=== PATIENT | female | born 1960 | race Caucasian/White ===

== ENCOUNTER 2024-08-02 11:25 | Emergency (ER) | payer BC, OTHER ==
--- OUTSIDE RECORDS SUMMARY | 2024-08-02 11:29 | XMS REPORT | Continuity of Care Document ---
Author Name Unknown Address [address] [facility] [address] [place] [address] [facility] thconnect Address [address] [facility]. [address] [place] [address] Care Team Providers Care Youth Care Worker Name Role Phone Pranay Ravi Primary Care Physician COLLEEN DOTY Attending Clinician Unavailab COLLEEN Villalba Attending Clinician Unavailab Colleen Villalba DO Attending Clinician ELVIRA OLEA Attending Clinician Unavailable KYLAH Attending Clinician Unavailable KYLAH Admitting Clinician Unavailable Payers Payer Name Policy Type Policy Number Effective Date Expirati on Date Source [employer] PPO AND OUT OF STATE [id number] 2008 00:00:00 [employer] MEDICARE [id number] 2021 00:00:00 BCMETHODIST [facility] [id number] 2023 00:00:00 Problems Condition Name Condition Details Condition Category Status Onset Date Resolution Date Last Treatment Date Treating Clinician Comments Source Back pain Back pain Disease Active 2014-08 00:00: 00 [facility] Right knee pain Right knee pain Disease Active 2014-08 00:00: 00 [facility] Allergies, Adverse Reactions, Alerts Allergy Name Allergy Type Status Severity Reaction(s) Onset Date Inactive Date Treating Clinician Comments Source BENADRYL ALLERGY DECONGES TANT DRUG Active Rash 2023-08 00:00: 00 [facility] Benadryl Allergy Deconges tant Propensi ty to adverse reaction s Active Rash 2023-08 00:00: 00 [facility] Diphenhy dramine Allergy to substanc e Active 09-21 00:00: 00 [facility] NO KNOWN ALLERGIE S Drug Class Active [facility] Social History Social Habit Start Date Stop Date Quantity Comments Source History of tobacco use Current smoker [facility] Alcoholic beverage intake 2024-08-01 00:00:00 2024-08-01 00:00:00 .86 /d [facility] Exposure to SARS-CoV-2 (event) 2022-09-11 00:00:00 2022-09-21 08:14:00 Not sure [facility] Tobacco use and exposure 2022-09-21 00:00:00 2022-09-21 00:00:00 Smokeless tobacco non-user [facility] Alcohol intake 2022-09-21 00:00:00 2022-09-21 00:00:00 Ex-drinker (finding) [facility] History of Social function 2019-02-26 00:00:00 2019-02-26 00:00:00 [facility] Sex assigned at 1960 00:00:00 1960 00:00:00 [facility] Smoking Status Start Date Stop Date Source Ex-smoker [facility] Never smoked tobacco [facility] Medications Ordered Medication Name Filled Medication Name Start Date Stop Date Current Medication? Ordering Clinician Indication Dosage Frequency Signature (SIG) Comments Components Source fentanyl PF (SUBLIMAZE (PF)) injection 50 mcg 2023-08 18:30: 00 08-01 18:21 :00 No 50ug 50 mcg, Slow IV Push, ONCE, 1 dose, On 08/01/24 at 1230, Routine [facility] iopamidol (ISOVUE 370-500 mL) injection 100 mL 2023-08 16:30: 00 08-01 16:45 :00 No [id number] 100mL 100 mL, Intravenou s, ONCE, 1 dose, On 08/01/24 at 1045, Routine [facility] traMADOL (ULTRAM) 50 mg tablet 2023-08 12:18: 11 08-01 00:00 :00 No 50mg Take 50 mg by mouth every 6 (six) hours as needed. [facility] PREDNISONE ORAL 2023-08 12:18: 08-01 00:00 :00 No Take by mouth. [facility] traMADoL 50 mg tablet 2023-08 00:00: 00 08-09 05:59 :00 Yes [id number] 50mg Take 1 tablet by mouth every 6 (six) hours as needed for Pain (scale 1-3) for up to 7 days. Indication s: acute pain [facility] ALPRAZolam (Xanax) 0.5 MG tablet 09-21 08:33: 06 Yes alprazolam 0.5 mg tablet TAKE 1 TABLET BY MOUTH TWICE A DAY [facility] cloNIDine (Catapres) 0.1 MG tablet 09-21 08:33: 06 Yes clonidine HCl 0.1 mg tablet TAKE 1 TABLET BY MOUTH TWICE A DAY [facility] clopidogrel (Plavix) 75 MG tablet 09-21 08:33: 06 Yes clopidogre l 75 mg tablet TAKE 1 TABLET BY MOUTH EVERY DAY [facility] rosuvastati n (Crestor) 5 MG tablet 09-07 00:00: 00 Yes 5mg Take 5 mg by mouth 1 (one) time each day in the evening. TAKE ONE (1) TABLET(S) BY MOUTH IN THE EVENING [facility] amLODIPine- benazepril (Lotrel) 5-20 MG capsule - 00:00: 00 Yes 1{capsu le} Take 1 capsule by mouth 1 (one) time each day in the morning. TAKE ONE (1) CAPSULE(S) BY MOUTH EVERY MORNING [facility] allopurinol (Zyloprim) 300 MG tablet 2021-08 00:00: 00 Yes 300mg Take 300 mg by mouth 1 (one) time each day in the morning. [facility] propranolol (Inderal) 20 MG tablet 2021-08 2 00:00: 00 Yes 20mg Q.5D Take 20 mg by mouth in the morning and 20 mg in the evening. [facility] Ozempic, 1 MG/DOSE, 4 MG/3ML solution pen-injecto r 2021-08 00:00: 00 Yes 1mg Inject 1 mg under the skin 1 (one) time per week. [facility] ARIPiprazol e (Abilify) 5 MG tablet 2021-08 00:00: 00 Yes 5mg Take 5 mg by mouth every night. [facility] methylPREDN ISolone (MEDROL, CHARLIE,) 4 mg tablets 08-28 00:00: 00 08-01 00:00 :00 No 84mg Take 21 tablets by mouth SEE-INSTRU CTIONS. follow package directions [facility] diclofenac (VOLTAREN) 75 mg EC tablet 04-19 00:00: 00 08-01 00:00 :00 No 75mg Take 1 tablet by mouth 2 (two) times daily with meals. [facility] bumetanide (BUMEX) 1 mg tablet 04-18 00:00: 00 Yes [facility] it[facility] clopidogrel (PLAVIX) 75 mg tablet 04-12 00:00: 00 Yes [facility] escitalopra m oxalate (LEXAPRO) 20 mg tablet 04-11 00:00: 00 Yes [facility] ALPRAZolam (XANAX) 0.5 mg tablet 04-07 00:00: 00 Yes [facility] cyclobenzap rine (FLEXERIL) 10 mg tablet 04-07 00:00: 00 Yes [facility] amlodipine- benazepril (LOTREL) 5-20 mg per capsule 03-26 00:00: 00 [facility] cloniDINE (CATAPRES) 0.1 mg tablet 03-26 00:00: 00 Yes [facility] omeprazole (PRILOSEC) 20 mg capsule 03-26 00:00: 00 Yes [facility] CRESTOR 5 mg tablet 03-26 00:00: 00 Yes [facility] Vital Signs Vital Name Observation Time Observation Value Comments Bryant gottlieb Systolic blood pressure 2024-08-01 18:21:00 147 mm[Hg] [facility] Diastolic blood pressure 2024-08-01 18:21:00 90 mm[Hg] [facility] Heart rate 2024-08-01 18:21:00 68 /min [facility] Oxygen saturation in Arterial blood by Pulse oximetry 2024-08-01 18:21:00 97 /min [facility] Body temperature 2024-08-01 14:49:00 37 Anika [facility] Respiratory rate 2024-08-01 14:49:00 18 /min [facility] Body height 2024-08-01 14:49:00 154.9 cm [facility] Body weight 2024-08-01 14:49:00 78.926 kg [facility] BMI 2024-08-01 14:49:00 32.88 kg/m2 [facility] Systolic blood pressure 2022-09-21 14:30:00 108 mm[Hg] [facility] Diastolic blood pressure 2022-09-21 14:30:00 72 mm[Hg] [facility] Heart rate 2022-09-21 14:30:00 81 /min [facility] Body temperature 2022-09-21 14:30:00 36.39 [facility] Body height 2022-09-21 14:30:00 154.9 cm [facility] Body weight 2022-09-21 14:30:00 94.348 [facility] BMI 2022-09-21 14:30:00 39.30 kg/m2 [facility] Procedures Procedure Date / Time Performed Performing Clinicia n Source CT SOFT TISSUE NECK W CONTRAST 2024-08-01 16:36:51 Colleen Doty [facility] BASIC METABOLIC PANEL (NA, K, CL, CO2, GLUCOSE, BUN, CREATININE, CA) 2024-08-01 15:09:00 Colleen Doty [facility] CBC WITH DIFF 2024-08-01 15:09:00 Colleen Doty [facility] Encounters Start Date/Time End Date/Time Encounter Type Admission Type Attending Clinicians Care Facility Care Department Encounter ID Source 2022-09-21 08:19:13 Outpatient [facility] [id number] [facility] 2022-09-18 15:17:08 Outpatient [facility] [id number] [facility] 2022-09-14 11:51:25 Outpatient [facility] [id number] [facility] 2022-08-21 10:49:31 Outpatient [facility] [id number] [facility] 2024-08-01 08:50:00 2024-08-01 12:44:00 Emergency X COLLEEN DOTY [facility] E[facility] [id number] [facility] 2024-08-01 08:50:00 2024-08-01 12:44:00 Emergency Colleen Doty [facility] [id number] [facility] 2022-09-21 08:30:00 2022-09-21 08:30:00 Office Visit ELVIRA OLEA [facility] [id number] [facility] [id number] [facility] 2022-03-01 04:32:00 2022-03-01 04:32:00 Outpatient ELOY BURAK [facility] [id number] [place] [facility] [place] Results Test Description Test Time Test Comments Results Resul t Comments Source CT Soft tissue neck w contrast 2024-07-19 4 18:01:32 Ordering physician:COLLEEN DOTY CLINICAL HISTORY: swollen lump below right jaw TECHNIQUE: Helical CT imaging of the neck with IV contrast. Coronal andsagittal reformatted images were obtained. ALARA (As Low As ReasonablyAchievab le) ?principles was used during this examination. COMPARISON: ?None FINDINGS: There is mild asymmetric enlargement of the right submandibular gland. Apunctate calcification within the gland may represent a sialolith. Smallamount of adjacent edema. Remaining intrasellar contents are unremarkable.Thyro id is unremarkable. Several slightly prominent bilateral level 2 lymph nodes. Intracranial contents are grossly unremarkable. Orbits and globes areunremarkable. Mastoid air cells and paranasal sinuses are clear. Minimal paraseptal emphysematous changes. Degenerative changes of the cervical spine. [id number] 15:24:59* Test Item Value Reference Range Interpretation Comme nts WBC (test code = 6690-2) 8.56 4.30-11.10 RBC (test code = 789-8) 4.60 3.93-5.25 HGB (test code = 718-7) 13.8 g/dL 11.6-15.0 HCT (test code = 4544-3) 40.3 % 35.7-45.2 MCV (test code = 787-2) 87.6 fL 80.6-95.5 MCH (test code = 785-6) 30.0 pg 25.9-32.8 MCHC (test code = 786-4) 34.2 g/dL 31.6-35.1 RDW-SD (test code = 79071-3) 45.0 fL 39.0-49.9 RDW-CV (test code = 788-0) 14.0 % 12.0-15.5 PLT (test code = 777-3) 200 166-358 MPV (test code = 90943-5) 11.5 fL 9.5-12.9 NRBC/100 WBC (test code = 7806554110) 0.0 0.0-10.0 NRBC x10^3 (test code = 3856436188) See_Comment [Automated me ssage] The system which generated this result transmitted reference range: 10*3/?L. The reference range was not used to interpret this result as normal/abnormal. GRAN MAT (NEUT) % (test code = 770-8) 62.0 % IMM GRAN % (test code = 7543000601) 0.50 % LYMPH % (test code = 736-9) 24.9 % MONO % (test code = 5905-5) 9.9 % EOS % (test code = 713-8) 1.9 % BASO % (test code = 706-2) 0.8 % GRAN MAT x10^3(ANC) (test code = 0754048164) 5.31 10*3/uL 1.88-7.09 IMM GRAN x10^3 (test code = 7219759222) 0.04 10*3/uL 0.00-0.06 LYMPH x10^3 (test code = 731-0) 2.13 10*3/uL 1.32-3.29 MONO x10^3 (test code = 742-7) 0.85 10*3/uL 0.33-0.92 EOS x10^3 (test code = 711-2) 0.16 10*3/uL 0.03-0.39 BASO x10^3 (test code = 704-7) 0.07 10*3/uL 0.01-0.07 [facility]
[2024-08-02] MEDS ORDERED: TRAMADOL HCL 50 MG TAB ONE (12:22)
--- NOTE | 2024-08-02 12:41 | EDPHYS ---
Physician Documentation [facility] Name: Amada Villa Age: 63 yrs Sex: Female : 1960 Arrival Date: 08/02/2024 Time: 11:25 Bed 4 Private MD: ED Physician Adam Henao HPI: 08/02 12:33 This 63 yrs old Female presents to ER via Ambulatory with complaints of Throat swelling.bo1 12:33 Swollen right salivary gland since February 2024. Onset: The symptoms/episode bo1 began/occurred gradually, 4 month(s) ago. Severity of symptoms: At their worst the symptoms were moderate. The patient has been recently seen by a physician: Yesterday at [facility], referred to PCP - salivary stone suspected. Labs normal.. Pt has seen ENT and Oral surgeon and is "getting the run around". Historical: - Allergies: 11:35 Benadryl; ll1 - PMHx: 11:35 Hypertensive disorder; ll1 - PSHx: 11:35 aneurysm; Cholecystectomy; carpal tunnel B, bone spurs B; ll1 - Immunization history:: Adult Immunizations up to date. - Infectious Disease History:: Denies. - Social history:: Smoking status: Patient/guardian denies using tobacco, Stopped _ months ago 2. ROS: 12:35 Constitutional: Negative for fever, chills, and weight loss bo1 12:35 Constitutional: Positive for poor PO intake, Poor appetite and dry mouth and hurts to eat due to "mass", 12:35 ENT: Positive for injury or acute deformity, of the right jaw, Large 3cm salivary stone in submandibular area, 12:35 Neck: Positive for swelling, tenderness, Reviewed [facility] paperwork and CT scan report, 12:35 Skin: Negative for rash, Exam: 12:37 Constitutional: This is a well developed, well nourished patient who is awake, alert, bo1 and in no acute distress. 12:37 Constitutional: The patient appears alert, awake, non-toxic, well nourished, 12:37 Head/face: Noted is deformity, swelling, Large salivary stone present. 12:37 ENT: External ear(s): are unremarkable, Nose: is normal, Mouth: is normal, Posterior pharynx: is normal, Under the right lower jaw line is the mass since February 2024. 12:37 Skin: no rash present. Vital Signs: 11:32 BP 121 / 87; Pulse 79; Resp 17; Temp 97.5; Pulse Ox 98% ; Weight 79.38 kg; Height 5 ft. ll1 1 in. ; Pain 10/10; 11:32 Body Mass Index 33.07 (79.38 kg, 154.94 cm) ll1 11:32 Pain Scale: Adult ll1 MDM: 11:48 Medical Screening Exam initiated dr5 12:38 Differential Diagnosis Salivary stone needing removal. Data reviewed: vital signs, bo1 diagnostic data from outside facility, radiologic studies, CT scan, ER records from [facility]. ED course: Pt needs to be seen at [facility] and to the ENT or Oral Surgery clinic to get scheduled for stone removal. Administered Medications: 12:24 Drug: traMADol PO 100 mg PO once Route: PO; bp 12:49 Follow up: Response: Medication administered at discharge. jl7 Disposition Summary: 08/02/24 12:41 Discharge Ordered Notes: Location: Home bo1 Problem: chronic bo1 Symptoms: are unchanged bo1 Condition: Stable bo1 Diagnosis - Other diseases of salivary glands bo1 Followup: bo1 - With: Private Physician - When: Upon discharge from the Emergency Department - Reason: Recheck today's complaints, Continuance of care Discharge Instructions: - Discharge Summary Sheet bo1 - Salivary Stone bo1 Forms: - Medication Reconciliation Form bo1 - Antibiotic Education bo1 - Prescription Opioid Use bo1 - Patient Portal Instructions bo1 - Leadership Thank You Letter bo1 Prescriptions: - tramadol 50 mg Oral tablet - take 2 tablet ORAL route every 6 hours as needed for pain; 30 tablet; Refills: bo1 0, Product Selection Permitted Signatures: Zaheer Vaughn RN RN Anitha Sarmiento RN RN ll1 Adam Henao MD MD bo1 Stanislaw Foster, THIOKOL OPERATOR-C THIOKOL OPERATOR-Cdr5 Jamee Story RN jl7
--- NOTE | 2024-08-02 12:41 | ER ---
Nurse's Notes [facility] Name: Amada Villa Age: 63 yrs Sex: Female : 1960 Arrival Date: 08/02/2024 Time: 11:25 Bed 4 Private MD: Diagnosis: Other diseases of salivary glands Presentation: 08/02 11:32 Chief complaint: Patient states: R sided neck pain and swelling for 2 weeks. On ll1 antibioitcs for almost 2 weeks. Fever off/on at home. States she has a calcium duct blockage. Coronavirus screen: Client denies travel out of the [place] in the last 14 days. At this time, the client does not indicate any symptoms associated with coronavirus-19. Ebola Screen: Patient denies travel to an Ebola-affected area in the 21 days before illness onset. Initial Sepsis Screen: Does the patient meet any 2 criteria? No. Patient's initial sepsis screen is negative. Does the patient have a suspected source of infection? No. Patient's initial sepsis screen is negative. Risk Assessment: Do you want to hurt yourself or someone else? Patient reports no desire to harm self or others. Onset of symptoms was July 19, 2024. 11:32 Method Of Arrival: Ambulatory ll1 11:32 Acuity: YESSENIA 3 ll1 Triage Assessment: 11:39 General: Appears uncomfortable, Behavior is calm, cooperative, appropriate for age. ll1 Pain: Complains of pain in R throat/neck area Pain currently is 8 out of 10 on a pain scale. Quality of pain is described as aching, throbbing. EENT: Reports pain in R side of throat when swallowing. Historical: - Allergies: 11:35 Benadryl; ll1 - PMHx: 11:35 Hypertensive disorder; ll1 - PSHx: 11:35 aneurysm; Cholecystectomy; carpal tunnel B, bone spurs B; ll1 - Immunization history:: Adult Immunizations up to date. - Infectious Disease History:: Denies. - Social history:: Smoking status: Patient/guardian denies using tobacco, Stopped _ months ago 2. Screenin:41 [facility] ED Fall Risk Assessment (Adult) History of falling in the last 3 months, bp including since admission No falls in past 3 months (0 pts) Confusion or Disorientation No (0 pts) Intoxicated or Sedated No (0 pts) Impaired Gait No (0 pts) Mobility Assist Device Used No (0 pt) Altered Elimination No (0 pt) Score/Fall Risk Level 0 - 2 = Low Risk Oriented to surroundings. Abuse screen: Denies threats or abuse. Denies injuries from another. Nutritional screening: No deficits noted. Tuberculosis screening: No symptoms or risk factors identified. Assessment: 11:41 General: Appears in no apparent distress. comfortable, Behavior is cooperative, bp appropriate for age, anxious. Pain: Complains of pain in neck. Neuro: No deficits noted. Cardiovascular: No deficits noted. Respiratory: No deficits noted. GI: No signs and/or symptoms were reported involving the gastrointestinal system. : No signs and/or symptoms were reported regarding the genitourinary system. EENT: Throat on right. Derm: No deficits noted. Musculoskeletal: No deficits noted. Vital Signs: 11:32 BP 121 / 87; Pulse 79; Resp 17; Temp 97.5; Pulse Ox 98% ; Weight 79.38 kg; Height 5 ft. ll1 1 in. ; Pain 10/10; 11:32 Body Mass Index 33.07 (79.38 kg, 154.94 cm) ll1 11:32 Pain Scale: Adult ll1 ED Course: 11:27 Patient arrived in ED. mr 11:34 Triage completed. ll1 11:36 Zaheer Vaughn, RN is Primary Nurse. bp 11:36 Arm band placed on Patient placed in an exam room, on a stretcher. ll1 11:41 Patient has correct armband on for positive identification. bp 11:47 Stanislaw Foster FNP-C is PHCP. dr5 11:48 Adam Henao MD is Attending Physician. dr5 12:48 Provided Education on: use of call guajardo. jl7 12:48 No provider procedures requiring assistance completed. Patient did not have IV access jl7 during this emergency room visit. Administered Medications: 12:24 Drug: traMADol PO 100 mg PO once Route: PO; bp 12:49 Follow up: Response: Medication administered at discharge. jl7 Medication: 11:41 VIS not applicable for this client. bp Outcome: 12:41 Discharge ordered by . bo1 12:48 Discharged to home ambulatory, jl7 12:48 Condition: stable 12:48 Discharge instructions given to patient, Instructed on discharge instructions, follow up and referral plans. medication usage, Demonstrated understanding of instructions, follow-up care, medications, Prescriptions given X 1, 12:49 Patient left the ED. jl7 Signatures: Marianne Toth, Ryan Reg mr StoryJamee, RN RN jl7 Zaheer Vaughn, RN RN bp Anitha Ontiveros RN RN ll1 Adam Henao MD MD bo1 Stanislaw Foster, ANALYTICAL CLERK-C ANALYTICAL CLERK-Cdr5 Corrections: (The following items were deleted from the chart) 11:36 11:32 BP 134 / 90; Pulse 79bpm; Resp 17bpm; Pulse Ox 98%; Temp 97.5F; 79.38 kg; Height ll1 5 ft. 1 in.; BMI: 33.0; Pain 10, Adult; ll1
[2024-08-02 12:54] VITALS: BP 121/87; TEMP 97.5; O2SAT 98
== END 2024-08-02 12:49 | disposition home or self-care (01) ==
LOC: ER 11:25
DX: K11.8 Other diseases of salivary glands (principal)
CPT/HCPCS: 99283